=== PATIENT | female | born 1965 | race Two or more races ===

== ENCOUNTER 2016-07-31 17:41 | Emergency (ER) | payer OTHER ==
[~2016-07-31] VITALS: Ht 162.6 cm; Wt 68.0 kg
[2016-07-31] MEDS ORDERED: KETOROLAC TROMETH 60MG/2ML VIAL IM ONE (19:30)
[2016-07-31 19:54] VITALS: BP 118/62
== END 2016-07-31 19:54 | disposition home or self-care (01) ==
LOC: ER 17:52
DX: S16.1XXA Strain of muscle, fascia and tendon at neck level, initial encounter (principal); M62.838 Other muscle spasm; V49.49XA Driver injured in collision with other motor vehicles in traffic accident, initial encounter; Y93.89 Activity, other specified; Y99.8 Other external cause status; Y92.410 Unspecified street and highway as the place of occurrence of the external cause
CPT/HCPCS: 93005; 96372; 99283; J1885